=== PATIENT | female | born 1975 | race Two or more races ===

== ENCOUNTER 2018-04-10 11:56 | Outpatient (CLI) | payer OTHER | END 2018-04-10 12:00 | disposition home or self-care (01) | LOC: MAMO-SONO 11:56 | DX: N63.10 Unspecified lump in the right breast, unspecified quadrant (principal); N63.20 Unspecified lump in the left breast, unspecified quadrant; Z12.31 Encounter for screening mammogram for malignant neoplasm of breast; N64.4 Mastodynia; N60.11 Diffuse cystic mastopathy of right breast ==

== ENCOUNTER 2019-11-01 09:43 | Outpatient (CLI) | payer OTHER | END 2019-11-01 10:00 | disposition home or self-care (01) | LOC: MAMO-SONO 09:43 | PROVIDERS: ATTEND Obstetrics & Gynecology Maternal & Fetal Medicine | DX: Z12.31 Encounter for screening mammogram for malignant neoplasm of breast (principal); N64.4 Mastodynia; N60.11 Diffuse cystic mastopathy of right breast; N63.10 Unspecified lump in the right breast, unspecified quadrant; N63.20 Unspecified lump in the left breast, unspecified quadrant ==

== ENCOUNTER 2021-01-05 13:53 | Outpatient (CLI) | payer OTHER | END 2021-01-05 14:12 | disposition home or self-care (01) | LOC: MAMO-SONO 13:53 | PROVIDERS: ATTEND Obstetrics & Gynecology Maternal & Fetal Medicine | DX: Z12.31 Encounter for screening mammogram for malignant neoplasm of breast (principal); N60.11 Diffuse cystic mastopathy of right breast; N64.4 Mastodynia ==

== ENCOUNTER 2022-05-09 13:39 | Outpatient (CLI) | payer OTHER | END 2022-05-09 13:54 | disposition home or self-care (01) | LOC: MAMO-SONO 13:39 | PROVIDERS: ATTEND Obstetrics & Gynecology Maternal & Fetal Medicine | DX: Z12.31 Encounter for screening mammogram for malignant neoplasm of breast (principal); N63.0 Unspecified lump in unspecified breast; N64.4 Mastodynia; N60.11 Diffuse cystic mastopathy of right breast ==

== ENCOUNTER 2023-05-11 12:06 | Outpatient (CLI) | payer OTHER | END 2023-05-11 12:31 | disposition home or self-care (01) | LOC: MAMO-SONO 12:06 | PROVIDERS: ATTEND Obstetrics & Gynecology Maternal & Fetal Medicine | DX: N63 Unspecified lump in breast (principal); N64.4 Mastodynia; N60.11 Diffuse cystic mastopathy of right breast; Z12.31 Encounter for screening mammogram for malignant neoplasm of breast ==

== ENCOUNTER 2024-09-24 12:09 | Outpatient (CLI) | payer OTHER | END 2024-09-24 12:21 | disposition home or self-care (01) | LOC: MAMO-SONO 12:09 | PROVIDERS: ATTEND Obstetrics & Gynecology Maternal & Fetal Medicine | DX: N63 Unspecified lump in breast (principal); N64.4 Mastodynia; N60.11 Diffuse cystic mastopathy of right breast ==